=== PATIENT | female | born 1950 | race Caucasian/White ===

== ENCOUNTER 2023-04-10 17:31 | Inpatient (IN) | payer OTHER ==
[~2023-04-10] VITALS: Ht 160 cm; Wt 65.3 kg
[2023-04-10 17:36] VITALS: BP 172/85
--- NOTE | 2023-04-10 18:24 | NUR ---
PT BIB ALS RUN FROM HOME C/O LEFT HIP AND LEG PAIN X3 MONTHS. DENIES TRAUMA OR INJURY.
--- NOTE | 2023-04-10 18:58 | NUR ---
PT HAS PAIN ON HER LEFT SIDE NEAR THE GROIN AREA. PT STATES THE PAIN RADITATES TO LEFT LEG. PT HAS BEEN PLACED ON MONITOR. PTS VITAL WNL. SKIN IS PINK/WARM/DRY; AAOX4 UNABLE TO AMBULATE; LUNGS CLEAR BL; HR EVEN AND REGULAR; PT DENIES ANY FEVER, CP, SOB, OR COUGH AT THIS TIME; PATIENT STATES PAIN OF 8/10 AT THIS TIME; VSS; PATIENT POSITIONED FOR COMFORT; HOB ELEVATED; BEDRAILS UP X2; BED DOWN. ER MD MADE AWARE OF PT STATUS.
[2023-04-10] MEDS ORDERED: MORPHINE SULFATE 4 MG/ML SYR IVP ONE (19:00)
[2023-04-10 19:15] LABS: BASOPHILS # (AUTO) 0.1 K/uL (0.00-0.22); BASOPHILS % (AUTO) 0.9 % (0.0-2.0); EOSINOPHILS % (AUTO) 0.1 % (0.0-4.0); HEMATOCRIT 37.8 % (36-48); HEMOGLOBIN 12.5 g/dL (12.0-16.0); LYMPHOCYTES # (AUTO) 1.3 K/uL (2.5-16.5); MEAN CORPUSCULAR HEMOGLOBIN 27 pg (27-31); MEAN CORPUSCULAR HGB CONC 33 g/dL (33-37); MONOCYTES # (AUTO) 0.5 K/uL (0.8-1.0); MONOCYTES % (AUTO) 6.1 % (1.7-9.3); NEUTROPHILS # (AUTO) 6.5 K/uL (1.8-7.7); NEUTROPHILS % (AUTO) 76.9 % (42.2-75.2); PLATELET COUNT (AUTO) 337 K/uL (140-450); RED BLOOD CELL COUNT(AUTO) 4.67 MIL/uL (4.20-5.40); RED CELL DISTRIBUTION WIDTH 14.9 % (11.6-13.7); WHITE BLOOD COUNT (AUTO) 8.4 K/uL (4.8-10.8)
[2023-04-10 19:31] LABS: ANION GAP 15.7 (8-16); ASPARTATE AMINOTRANSFERASE 24 U/L (15-37); CARBON DIOXIDE 24.5 mmol/L (21-32); CHLORIDE 102 mmol/L (98-107); CREATININE 0.9 mg/dL (0.6-1.3); GLUCOSE 158 mg/dL (74-106); POTASSIUM 4.2 mmol/L (3.5-5.1); SODIUM SERUM 138 mmol/L (136-145); TOTAL BILIRUBIN 0.8 mg/dL (0.0-1.0); UREA NITROGEN, BLOOD 9 mg/dL (7-18)
--- NOTE | 2023-04-10 19:35 | NUR ---
X-Ray at bedside.
[2023-04-10] MEDS ORDERED: MORPHINE SULFATE 4 MG/ML SYR ONE (20:01)
[2023-04-10] MEDS ORDERED: ACETAMINOPHEN 325 MG TAB PO PRN (20:15)
[2023-04-10] MEDS ORDERED: ZOLPIDEM 10 MG TAB PO PRN (20:15)
[2023-04-10] MEDS ORDERED: MAG SULF 2000 MG/WATER PREMIX 50 ML IV PRN (20:15)
[2023-04-10] MEDS ORDERED: POTASSIUM CHLORIDE 10 MEQ TABER PO PRN (20:15)
[2023-04-10] MEDS ORDERED: LORazepam 2 MG/ML VIAL IVP PRN (20:15)
[2023-04-10 21:09] LABS: APPEARANCE,URINE HAZY (CLEAR); COLOR,URINE AMBER (YELLOW)
[2023-04-10 21:10] LABS: NITRITE, URINE NEGATIVE (NEGATIVE)
[2023-04-10] MEDS ORDERED: CYCL-711 PO (21:10)
[2023-04-10] MEDS ORDERED: ATOR20TA40 PO (21:10)
[2023-04-10] MEDS ORDERED: [UNRECOGNIZED DRUG - CODE] PO (21:10)
[2023-04-10] MEDS ORDERED: AMOX-999 PO (21:10)
[2023-04-10] MEDS ORDERED: LISI-487 PO (21:10)
--- NOTE | 2023-04-10 21:10 | NUR ---
PT PENDING ADMISSION TO [facility]. MED RECONCILE AND PT BELONGINGS COMPLETED. PT AND FAMILY AWARE OF ADMISSION. DAUGHTER AT BEDSIDE
[2023-04-10 21:11] LABS: BILIRUBIN,URINE NEGATIVE (NEGATIVE); BLOOD, URINE 3+ (NEGATIVE); PH,URINE 8.5 (5.0-9.0); UGLUCOSE NEGATIVE (NEGATIVE)
[2023-04-10 21:12] LABS: LEUKOCYTE ESTERASE ,URINE 2+ (NEGATIVE)
--- NOTE | 2023-04-10 21:26 | NUR ---
REPORT GIVEN TO REYES LERMA
--- NOTE | 2023-04-10 21:35 | NUR ---
Patient will be admitted to care of DR TARIQ. Admited to [facility]. Will go to [id number]. Belongings list completed. Report to REYES LERMA.
--- NOTE | 2023-04-10 21:50 | NUR ---
PT WAS ADMITTED TO [facility] DEPARTMENT FROM ER WITH DIAGNOSIS OF HIP PAIN. PT IS AOX4, WITH DAUGHTER ON BEDSIDE, ON BEDREST, ABLE TO VERBALIZE NEEDS AND ABLE TO FOLLOW COMMANDS. PT IS ON ROOM AIR AND ON REGULAR DIET. PT HAS IV ON LEFT AC GAUGE 20, SALINE LOCK. PT SKIN IS INTACT BUT PT HAS BRUISES ON RIGHT HAND AND LEFT FOREARM. NO COMPLAIN OF PAIN AT THIS TIME. NO S/S OF DISTRESS NOTED. PT ORIENTED TO ROOM/HOSPITAL, BED BUTTONS AND CALL LIGHT. ALL SAFETY MEASURES IMPLEMENTED. BED IN LOW POSITION, BED WHEELS ON LOCK AND CALL LIGHT WITHIN REACH.
[2023-04-11] VITALS: BP 153/90
--- NOTE | 2023-04-11 | NUR ---
PT WAS GIVEN WARM WATER PER PT REQUEST. NO COMPLAIN OF PAIN. NO S/S OF DISTRESS NOTED. ALL SAFETY MEASURES IMPLEMENTED. BED IN LOW POSITION, BED WHEELS ON LOCK AND CALL LIGHT WITHIN REACH.
--- NOTE | 2023-04-11 02:00 | NUR ---
PT IS SLEEPING. CHEST RISE AND FALL SYMMETRICALLY NOTED. RESPIRATION IS EVEN AND UNLABORED. ALL SAFETY MEASURES IMPLEMENTED. BED IN LOW POSITION. BED WHEELS ON LOCK AND CALL LIGHT WITHIN REACH.
[2023-04-11] MEDS: ONDANSETRON 4 MG/2 ML VIAL IVP PRN ×2 (02:16→21:27)
[2023-04-11] MEDS: MORPHINE SULFATE 2 MG/ML SYR IVP PRN ×3 (02:16→21:28)
--- NOTE | 2023-04-11 02:16 | NUR ---
PRN PAIN MEDICATION WAS GIVEN TO PT DUE TO LEFT HIP PAIN WITH PAIN SCALE OF 8/10. ALL SAFETY MEASURES IMPLEMENTED. BED IN LOW POSITION. BED WHEELS ON LOCK AND CALL LIGHT WITHIN REACH.
--- NOTE | 2023-04-11 04:19 | NUR ---
CHECKED THE PT, STILL SLEEPING. CHEST RISE AND FALL SYMMETRICALLY NOTED. RESPIRATION IS EVEN AND UNLABORED. ALL SAFETY MEASURES IMPLEMENTED. BED IN LOW POSITION. BED WHEELS ON LOCK AND CALL LIGHT WITHIN REACH.
[2023-04-11 05:38] LABS: BASOPHILS # (AUTO) 0.1 K/uL (0.00-0.22); BASOPHILS % (AUTO) 0.6 % (0.0-2.0); EOSINOPHILS # (AUTO) 0.1 K/uL (0-0.4); EOSINOPHILS % (AUTO) 0.9 % (0.0-4.0); HEMATOCRIT 39.4 % (36-48); LYMPHOCYTES # (AUTO) 2.5 K/uL (2.5-16.5); LYMPHOCYTES % (AUTO) 25.8 % (20.5-51.1); MEAN CORPUSCULAR HEMOGLOBIN 27 pg (27-31); MEAN CORPUSCULAR HGB CONC 33 g/dL (33-37); MEAN CORPUSCULAR VOLUME 81.7 fL (80-94); MONOCYTES # (AUTO) 0.7 K/uL (0.8-1.0); MONOCYTES % (AUTO) 6.7 % (1.7-9.3); NEUTROPHILS # (AUTO) 6.5 K/uL (1.8-7.7); PLATELET COUNT (AUTO) 371 K/uL (140-450); RED BLOOD CELL COUNT(AUTO) 4.83 MIL/uL (4.20-5.40); WHITE BLOOD COUNT (AUTO) 9.8 K/uL (4.8-10.8)
[2023-04-11 06:12] LABS: ANION GAP 14.9 (8-16); CARBON DIOXIDE 26.6 mmol/L (21-32); CHLORIDE 102 mmol/L (98-107); CREATININE 0.8 mg/dL (0.6-1.3); GLUCOSE 160 mg/dL (74-106); POTASSIUM 4.5 mmol/L (3.5-5.1); SODIUM SERUM 139 mmol/L (136-145); UREA NITROGEN, BLOOD 8 mg/dL (7-18)
[2023-04-11] MEDS: INSULIN LISPRO SLIDING SCALE 100 UNITS/ML VIAL SUBQ PRN ×4 (06:35→20:14)
[2023-04-11] MEDS: BLOOD GLUCOSE MONITORING 1 DEV DEV FS SCH ×4 (06:35→20:11)
--- NOTE | 2023-04-11 06:35 | NUR ---
PT BLOOD GLUCOSE IS 163. HUMALOG INSULIN 2 UNITS WAS GIVEN TO PT.
--- NOTE | 2023-04-11 07:28 | NUR ---
PT IS STABLE. ENDORSED PT TO MORNING SHIFT NURSE FOR CONTINUITY OF CARE.
[2023-04-11 08:00] VITALS: BP 164/87
--- NOTE | 2023-04-11 08:00 | NUR ---
Patient's Plan of Care was discussed and reviewed with ARRANGING FUNERAL DIRECTOR: CLAUDINE NASH
[2023-04-11] MEDS: ATORVASTATIN 20 MG TAB PO SCH (09:42)
[2023-04-11] MEDS: lisinopriL 20 MG TAB PO SCH (09:42)
[2023-04-11 16:00] VITALS: BP 136/80
--- NOTE | 2023-04-11 19:25 | NUR ---
ENDORSED PT TO STITCH WHEELER NURSE FOR CONTINUITY OF CARE. PT IS STABLE.
--- NOTE | 2023-04-11 19:26 | NUR ---
RECEIVED PT FROM MORNING SHIFT NURSE. PT IS AOX4, ON BEDREST WITH DAUGHTER ON BEDSIDE, ABLE TO VERBALIZE NEEDS AND ABLE TO FOLLOW COMMANDS. PT IS ON ROOM AIR AND ON REGULAR DIET. PT HAS IV ON LEFT AC GAUGE 20, SALINE LOCK. PT SKIN IS INTACT. NO COMPLAIN OF PAIN AT THIS TIME. NO S/S OF RESPIRATORY DISTRESS NOTED. ALL SAFETY MEASURES IMPLEMENTED. BED IN LOW POSITION. BED WHEELS ON LOCK AND CALL LIGHT WITHIN REACH
--- NOTE | 2023-04-11 20:14 | NUR ---
PT BLOOD GLUCOSE IS 170. HUMALOG INSULIN 2 UNITS WAS GIVEN TO PT PER MD ORDER.
--- NOTE | 2023-04-11 21:28 | NUR ---
PT WAS GIVEN PRN PAIN MEDICATION AND ZOFRAN DUE TO PAIN ON LEFT HIP WITH PAIN SCALE OF 8/10. ALL SAFETY MEASURES IMPLEMENTED. BED IN LOW POSITION. BED WHEELS ON LOCK AND CALL LIGHT WITHIN REACH
[2023-04-12] VITALS: BP 135/91
--- NOTE | 2023-04-12 | NUR ---
PT IS ON SLEEP. CHEST RISE AND FALL SYMMETRICALLY NOTED. RESPIRATION IS EVEN AND UNLABORED. ALL SAFETY MEASURES IMPLEMENTED. BED IN LOW POSITION. BED WHEELS ON LOCK AND CALL LIGHT WITHIN REACH
--- NOTE | 2023-04-12 04:00 | NUR ---
HELPED THE PT TO DO HER MORNING CARE. NO COMPLAIN OF PAIN AT THIS TIME. NO S/S OF RESPIRATORY DISTRESS NOTED. ALL SAFETY MEASURES IMPLEMENTED. BED IN LOW POSITION. BED WHEELS ON LOCK AND CALL LIGHT WITHIN REACH
[2023-04-12 05:04] LABS: BASOPHILS # (AUTO) 0.1 K/uL (0.00-0.22); BASOPHILS % (AUTO) 0.5 % (0.0-2.0); EOSINOPHILS # (AUTO) 0.2 K/uL (0-0.4); EOSINOPHILS % (AUTO) 1.5 % (0.0-4.0); HEMATOCRIT 38.2 % (36-48); HEMOGLOBIN 12.6 g/dL (12.0-16.0); LYMPHOCYTES # (AUTO) 2.3 K/uL (2.5-16.5); LYMPHOCYTES % (AUTO) 22.2 % (20.5-51.1); MEAN CORPUSCULAR HEMOGLOBIN 27 pg (27-31); MEAN CORPUSCULAR HGB CONC 33 g/dL (33-37); MONOCYTES # (AUTO) 0.7 K/uL (0.8-1.0); MONOCYTES % (AUTO) 7.2 % (1.7-9.3); NEUTROPHILS # (AUTO) 7.1 K/uL (1.8-7.7); NEUTROPHILS % (AUTO) 68.6 % (42.2-75.2); PLATELET COUNT (AUTO) 362 K/uL (140-450); RED BLOOD CELL COUNT(AUTO) 4.71 MIL/uL (4.20-5.40); RED CELL DISTRIBUTION WIDTH 15.4 % (11.6-13.7); WHITE BLOOD COUNT (AUTO) 10.3 K/uL (4.8-10.8)
[2023-04-12 05:24] LABS: ANION GAP 13.2 (8-16); CARBON DIOXIDE 25.7 mmol/L (21-32); CHLORIDE 102 mmol/L (98-107); CREATININE 0.8 mg/dL (0.6-1.3); GLUCOSE 166 mg/dL (74-106); POTASSIUM 3.9 mmol/L (3.5-5.1); SODIUM SERUM 137 mmol/L (136-145); UREA NITROGEN, BLOOD 11 mg/dL (7-18)
[2023-04-12] MEDS: BLOOD GLUCOSE MONITORING 1 DEV DEV FS SCH ×4 (06:36→21:53)
[2023-04-12] MEDS: INSULIN LISPRO SLIDING SCALE 100 UNITS/ML VIAL SUBQ PRN ×4 (06:37→21:56)
--- NOTE | 2023-04-12 06:37 | NUR ---
PT BLOOD GLUCOSE IS 154. HUMALOG INSULIN 2 UNITS WAS GIVEN TO PT.
--- NOTE | 2023-04-12 07:21 | NUR ---
PT IS STABLE. ENDORSED PT TO MORNING SHIFT NURSE FOR CONTINUITY OF CARE.
--- NOTE | 2023-04-12 07:22 | NUR ---
RECEIVED PT FROM FILLING MACHINE SET UP MECHANIC NURSE FOR CONTINUITY OF CARE. PT IS AWAKE, AOX4. ABLE TO VERBALIZE NEEDS. IV ON LAC 20G, SL. RESPIRATIONS EVEN AND UNLABORED ON RA. CALL LIGHT WITHIN REACH. ALL SAFETY PRECAUTIONS IN PLACE.
[2023-04-12 08:00] VITALS: BP 126/67
--- NOTE | 2023-04-12 08:00 | NUR ---
Patient's Plan of Care was discussed and reviewed with OIL SPRAYER: CLAUDINE NASH
[2023-04-12] MEDS: ATORVASTATIN 20 MG TAB PO SCH (08:34)
[2023-04-12] MEDS: lisinopriL 20 MG TAB PO SCH (08:35)
--- NOTE | 2023-04-12 08:52 | NUR ---
PATIENT HAS BEEN SCREENED AND CATEGORIZED LOW NUTRITION RISK. PATIENT WILL BE SEEN WITHIN 7 DAYS OF ADMISSION. 04/10/23-04/17/[address]
[2023-04-12] MEDS: MORPHINE SULFATE 2 MG/ML SYR IVP PRN ×2 (09:51→18:33)
[2023-04-12 16:00] VITALS: BP 115/67
--- NOTE | 2023-04-12 18:50 | NUR ---
REASSESSMENT OF PAIN. PT IS AWAKE AND DENIES OF PAIN, PAIN IS 0/10.
--- NOTE | 2023-04-12 19:30 | NUR ---
ENDORSED PT TO GM MOBILE NURSE FOR CONTINUITY OF CARE. PT IS STABLE.
--- NOTE | 2023-04-12 19:30 | NUR ---
REVISION OF PREVIOUS NOTES ON REASSESSMENT OF PAIN. THE REASSESSMENT TIME OF PAIN ADMINISTRATION IS 1929, NOT 1849. TYPING ERROR.
[2023-04-12 20:00] VITALS: BP 118/70
--- NOTE | 2023-04-12 20:00 | NUR ---
PT CONSUMED 50% OF DINNER.
--- NOTE | 2023-04-12 21:56 | NUR ---
BLOOD SUGAR CHECK = 200 = 2 UNITS HUMALOG INSULIN ADMINISTERED. PT IS ON STABLE CONDITION.
[2023-04-13 05:56] LABS: BASOPHILS # (AUTO) 0.1 K/uL (0.00-0.22); BASOPHILS % (AUTO) 0.5 % (0.0-2.0); EOSINOPHILS # (AUTO) 0.2 K/uL (0-0.4); EOSINOPHILS % (AUTO) 1.7 % (0.0-4.0); HEMATOCRIT 37.5 % (36-48); HEMOGLOBIN 12.4 g/dL (12.0-16.0); LYMPHOCYTES # (AUTO) 3.2 K/uL (2.5-16.5); LYMPHOCYTES % (AUTO) 27.5 % (20.5-51.1); MEAN CORPUSCULAR HEMOGLOBIN 27 pg (27-31); MEAN CORPUSCULAR HGB CONC 33 g/dL (33-37); MEAN CORPUSCULAR VOLUME 81.9 fL (80-94); MONOCYTES % (AUTO) 8.2 % (1.7-9.3); NEUTROPHILS # (AUTO) 7.3 K/uL (1.8-7.7); NEUTROPHILS % (AUTO) 62.1 % (42.2-75.2); PLATELET COUNT (AUTO) 307 K/uL (140-450); RED BLOOD CELL COUNT(AUTO) 4.58 MIL/uL (4.20-5.40); RED CELL DISTRIBUTION WIDTH 15.7 % (11.6-13.7); WHITE BLOOD COUNT (AUTO) 11.7 K/uL (4.8-10.8)
[2023-04-13 05:57] LABS: ANION GAP 11.7 (8-16); CARBON DIOXIDE 27.6 mmol/L (21-32); CHLORIDE 102 mmol/L (98-107); POTASSIUM 4.3 mmol/L (3.5-5.1); SODIUM SERUM 137 mmol/L (136-145)
[2023-04-13 06:06] LABS: CREATININE 0.9 mg/dL (0.6-1.3); GLUCOSE 171 mg/dL (74-106); UREA NITROGEN, BLOOD 11 mg/dL (7-18)
[2023-04-13] MEDS: BLOOD GLUCOSE MONITORING 1 DEV DEV FS SCH ×4 (06:59→20:48)
[2023-04-13] MEDS: INSULIN LISPRO SLIDING SCALE 100 UNITS/ML VIAL SUBQ PRN ×3 (07:02→20:51)
--- NOTE | 2023-04-13 07:02 | NUR ---
BLOOD SUGAR CHECK = 161 = 2 UNITS HUMALOG INSULIN ADMINISTERED. PT IS STABLE.
--- NOTE | 2023-04-13 07:30 | NUR ---
PT IS ON STABLE CONDITION, ENDORSED TO DAY SHIFT NURSE FOR CONTINUITY OF CARE. SAFETY MEASURES ARE IN PLACE.
[2023-04-13 08:00] VITALS: BP 124/71
[2023-04-13] MEDS ORDERED: NITROFURANTOIN 100 MG CAP PO SCH (08:00)
--- NOTE | 2023-04-13 09:00 | NUR ---
RECEIVED PATIENT IN BED C/O LEFT HIP PAIN 06/04. MORPHINE 2 MG IVP GIVEN ORDERED. DAUGHTER VISITED AND UPDATED THE PLAN OF CARE FOR TODAY. ANSWERED ALL QESTION , VERBALLY UNDERSTAND.
[2023-04-13] MEDS: ATORVASTATIN 20 MG TAB PO SCH (09:05)
[2023-04-13] MEDS: lisinopriL 20 MG TAB PO SCH (09:05)
[2023-04-13] MEDS: MORPHINE SULFATE 2 MG/ML SYR IVP PRN ×2 (09:06→15:52)
[2023-04-13] MEDS: AMOXIL/CLAVULANATE 875/125 MG 1 TAB PO SCH ×2 (12:05→20:53)
--- NOTE | 2023-04-13 12:45 | NUR ---
P.T. NOTES P.T. EVAL COMPLETED; REFER TO EVAL FOR DETAILS.
--- NOTE | 2023-04-13 13:50 | NUR ---
DC [age] YRS OLD FEMALE PATIENT WAS ADMITTED FROM HOME WITH A DX OF HIP PAIN. PATIENT HAS A HX OF HTN. HIP XRA NO ACUTE FRACTURE OR DISLOCATION. NORMAL CHEST. US VENOUS NO DVT. CT ABD SHOWED NONOBSTRUCTING 3MM RIGHT RENAL CALCULUS. RAPID COVID TEST NEGATIVE. ADMINISTERED IVF, IV ABX AMOXICILLIN AND CONTINUED HOME MEDS. PT EVALUATION ORDERED. DC PLAN TO GO HOME WHEN STABLE. CM TO FOLLOW Addendum: 04/14/23 at 3141 by JUANCARLOS SPARKS CM RECEIVED ORDER FOR PATIENT TO HAVE HOME HEALTH FOR PT SET UP AND TO ORDER A FRONT WHEEL WALKER. FAXED TO [place] [facility] AND [facility].WILL FOLLOW UP WITH UPDATES. Addendum: 04/14/23 at 1410 by JUANCARLOS SPARKS CM PATIENT ALREADY HAS A HOME HEALTH SET UP WITH [facility] [employer] AND FAXED OVER [facility] WILL RESUME CARE UPON DISCHARGE. Addendum: 04/14/23 at 1514 by JUANCARLOS SPARKS [facility] CALLED AND SAID THEY ARE PROCESSING FWW THEY ARE JUST VERIFYING 2ND INSURANCE TO SEE IF PATIENT HAS A CO-PAY, IF THERE IS ONE THEY WILL CONTACT PATIENT AND FAMILY. ONCE CONFIRMED FWW WILL BE DELIVERED AT HOME.
[2023-04-13 16:00] VITALS: BP 122/77
[2023-04-13] MEDS: DOCUSATE SODIUM 100 MG GELCAP PO PRN (18:13)
--- NOTE | 2023-04-13 19:30 | NUR ---
RECEIVED ENDORSEMENT FROM DAY SHIFT NURSE. PT IS ON BED, AWAKE AND ALERT. ABLE TO VERBALIZED NEEDS. FAMILY AT BED SITE WHEN NURSE DID ROUNDS. IV SITE INTACT AND PATENT. SKIN INTACT. PT IS WITH [employer] AND IS WORKING WELL. PT CONTINUE WITH [facility] DIET.
[2023-04-13 20:00] VITALS: BP 124/67
--- NOTE | 2023-04-13 20:51 | NUR ---
BLOOD SUGAR CHECKED = 178 = 2 UNITS HUMALOOG INSULIN ADMINISTERED PER SLIDING SCALE.
--- NOTE | 2023-04-13 22:00 | NUR ---
PT TAKES PRUNE JUICE X 1 CUP FOR PT COMPLAINTS OF CONSTIPATION, UNABLE TO HAVE BOWEL MOVEMENT (TODAY IS THE 3RD DAY).
--- NOTE | 2023-04-14 | NUR ---
PT IS SLEEPING. NO FACIAL GRIMACING, NO SOB OR DISTRESS.
[2023-04-14 04:00] VITALS: BP 129/73
[2023-04-14 05:30] LABS: ANION GAP 12.9 (8-16); CARBON DIOXIDE 26.3 mmol/L (21-32); CHLORIDE 102 mmol/L (98-107); CREATININE 0.7 mg/dL (0.6-1.3); GLUCOSE 168 mg/dL (74-106); POTASSIUM 4.2 mmol/L (3.5-5.1); SODIUM SERUM 137 mmol/L (136-145); UREA NITROGEN, BLOOD 12 mg/dL (7-18)
[2023-04-14 05:35] LABS: BASOPHILS # (AUTO) 0.1 K/uL (0.00-0.22); BASOPHILS % (AUTO) 0.6 % (0.0-2.0); EOSINOPHILS # (AUTO) 0.2 K/uL (0-0.4); EOSINOPHILS % (AUTO) 1.8 % (0.0-4.0); HEMATOCRIT 37.3 % (36-48); HEMOGLOBIN 12.5 g/dL (12.0-16.0); LYMPHOCYTES # (AUTO) 2.9 K/uL (2.5-16.5); LYMPHOCYTES % (AUTO) 28.7 % (20.5-51.1); MEAN CORPUSCULAR HEMOGLOBIN 27 pg (27-31); MEAN CORPUSCULAR HGB CONC 33 g/dL (33-37); MEAN CORPUSCULAR VOLUME 81.9 fL (80-94); MONOCYTES # (AUTO) 0.9 K/uL (0.8-1.0); MONOCYTES % (AUTO) 8.6 % (1.7-9.3); NEUTROPHILS % (AUTO) 60.3 % (42.2-75.2); PLATELET COUNT (AUTO) 300 K/uL (140-450); RED BLOOD CELL COUNT(AUTO) 4.56 MIL/uL (4.20-5.40); RED CELL DISTRIBUTION WIDTH 15.1 % (11.6-13.7)
[2023-04-14] MEDS: MORPHINE SULFATE 2 MG/ML SYR IVP PRN ×3 (06:22→19:37)
--- NOTE | 2023-04-14 06:22 | NUR ---
PT COMPLAINTS OF LEFT HIP PAIN 04/04, PAIN MEDICATION MORPHINE 2 MG ADMINISTERED VIA IVP.
[2023-04-14] MEDS: BLOOD GLUCOSE MONITORING 1 DEV DEV FS SCH ×4 (06:32→20:07)
--- NOTE | 2023-04-14 06:32 | NUR ---
BLOOD SUGAR CHECKED = 145, NO SLIDING SCALE COVERAGE, NO INSULIN NEEDED.
--- NOTE | 2023-04-14 06:40 | NUR ---
PT ASLEEP. NO FACIAL GRIMACING
--- NOTE | 2023-04-14 07:15 | NUR ---
PT IS ON STABLE CONDITION, SAFETY MEASURES ARE IN PLACE, ENDORSE TO DAY SHIFT NURSE FOR CONTINUITY OF CARE.
--- NOTE | 2023-04-14 07:16 | NUR ---
RECEIVED PT FROM INTERNATIONAL GUEST COORDINATOR NURSE FOR CONTINUITY OF CARE. PT IN BED SLEEPING. AROUSABLE TO VOICE. AAOX4, RESPIRATIONS EVEN AND UNLABORED ON RA. IV ON LAC 20G, SL. PUREWICK IN PLACE, SUCTION ON. SKIN WARM AND DRY. CALL LIGHT WITHIN REACH, ALL SAFETY PRECAUTIONS IN PLACE.
--- NOTE | 2023-04-14 08:00 | NUR ---
Patient's Plan of Care was discussed and reviewed with FRONT DESK SUPERVISOR: Trina
[2023-04-14] MEDS: lisinopriL 20 MG TAB PO SCH (09:12)
[2023-04-14] MEDS: ATORVASTATIN 20 MG TAB PO SCH (09:13)
[2023-04-14] MEDS: AMOXIL/CLAVULANATE 875/125 MG 1 TAB PO SCH ×2 (09:13→20:06)
--- NOTE | 2023-04-14 09:13 | NUR ---
ALL SCHEDULED MORNING MEDS GIVEN. PT TOLERATING WELL.
[2023-04-14] MEDS ORDERED: HYDR-5080 PO (11:06)
[2023-04-14] MEDS: INSULIN LISPRO SLIDING SCALE 100 UNITS/ML VIAL SUBQ PRN ×3 (12:05→20:07)
[2023-04-14 16:00] VITALS: BP 113/65
--- NOTE | 2023-04-14 19:24 | NUR ---
ENDORSE PT TO MEDICINAL CHEMIST NURSE FOR CONTINUITY OF CARE. PT IS STABLE.
--- NOTE | 2023-04-14 19:25 | NUR ---
RECEIVED PT IN BED AWAKE, ALERT AND ORIENTED X 4, SON AT THE BEDSIDE.DENIES PAIN AT THIS TIME. NO RESPIRATORY DISTRESS. SKIN WARM AND DRY TO TOUCH. SAFETY PRECAUTIONS IN PLACE, CALL LIGHT IN REACH, ENCOURAGED TO CALL IF ASSISTANCE IS NEEDED, PT VERBALLY ACKNOWLEDGED.
[2023-04-14 19:45] VITALS: BP 127/69
--- NOTE | 2023-04-15 00:11 | NUR ---
PT IS ASLEEP. NO S/SX OF PAIN NOR DISCOMFORT. CALL LIGHT WITHIN REACH.
[2023-04-15 04:00] VITALS: BP 118/72
[2023-04-15 05:44] LABS: BASOPHILS # (AUTO) 0.1 K/uL (0.00-0.22); BASOPHILS % (AUTO) 0.6 % (0.0-2.0); EOSINOPHILS # (AUTO) 0.3 K/uL (0-0.4); EOSINOPHILS % (AUTO) 2.5 % (0.0-4.0); HEMATOCRIT 39.4 % (36-48); HEMOGLOBIN 12.9 g/dL (12.0-16.0); LYMPHOCYTES # (AUTO) 3.1 K/uL (2.5-16.5); LYMPHOCYTES % (AUTO) 29.4 % (20.5-51.1); MEAN CORPUSCULAR HEMOGLOBIN 27 pg (27-31); MEAN CORPUSCULAR HGB CONC 33 g/dL (33-37); MEAN CORPUSCULAR VOLUME 82.9 fL (80-94); MONOCYTES % (AUTO) 9.4 % (1.7-9.3); NEUTROPHILS # (AUTO) 6.2 K/uL (1.8-7.7); NEUTROPHILS % (AUTO) 58.1 % (42.2-75.2); PLATELET COUNT (AUTO) 300 K/uL (140-450); RED BLOOD CELL COUNT(AUTO) 4.76 MIL/uL (4.20-5.40); WHITE BLOOD COUNT (AUTO) 10.6 K/uL (4.8-10.8)
[2023-04-15 05:58] LABS: ANION GAP 12.2 (8-16); CARBON DIOXIDE 28.9 mmol/L (21-32); CHLORIDE 101 mmol/L (98-107); CREATININE 0.8 mg/dL (0.6-1.3); GLUCOSE 161 mg/dL (74-106); POTASSIUM 5.1 mmol/L (3.5-5.1); SODIUM SERUM 137 mmol/L (136-145); UREA NITROGEN, BLOOD 19 mg/dL (7-18)
--- NOTE | 2023-04-15 06:18 | NUR ---
PATIENT IS ASLEEP, EASILY AROUSABLE BY VERBAL STIMULI. REFUSED AM CARE, PER PT: " I AM CLEAN." NO RESPIRATORY DISTRESS. ALL NEEDS ATTENDED TO. SAFETY PRECAUTIONS MAINTAINED DURING THE SHIFT, CALL LIGHT REMAINS WITHIN REACH.
[2023-04-15] MEDS: BLOOD GLUCOSE MONITORING 1 DEV DEV FS SCH ×2 (06:30→12:21)
[2023-04-15] MEDS: INSULIN LISPRO SLIDING SCALE 100 UNITS/ML VIAL SUBQ PRN (06:31)
--- NOTE | 2023-04-15 07:20 | NUR ---
RECEIVED REPORT FROM PLANT MAINTENANCE SUPERVISOR NURSE. PATIENT LYING DOWN IN BED, NO DISTRESS NOTED. AAOX4, SKIN INTACT. ON ROOM AIR. IV SITE INTACT, PATENT, AND ON SALINE LOCK. REVIEWED PLAN OF CARE WITH PATIENT. VERBALIZED UNDERSTANDING. SAFETY MEASURES IN PLACE, CALL LIGHT WITHIN REACH. WILL CONTINUE TO MONITOR.
[2023-04-15 08:00] VITALS: BP 122/73
[2023-04-15] MEDS: ATORVASTATIN 20 MG TAB PO SCH (08:41)
[2023-04-15] MEDS: AMOXIL/CLAVULANATE 875/125 MG 1 TAB PO SCH (08:41)
[2023-04-15] MEDS: MORPHINE SULFATE 2 MG/ML SYR IVP PRN (08:41)
[2023-04-15] MEDS: lisinopriL 20 MG TAB PO SCH (08:42)
--- NOTE | 2023-04-15 08:42 | NUR ---
SCHEDULED MEDICATIONS DUE GIVEN. COMPLAINS OF RIGHT HIP PAIN, MORPHINE PRN GIVEN AT THIS TIME. WILL CONTINUE TO MONITOR.
[2023-04-15] MEDS: DOCUSATE SODIUM 100 MG GELCAP PO PRN (09:15)
--- NOTE | 2023-04-15 11:53 | NUR ---
04/15/23 RD INITIAL ASSESSMENT COMPLETED PLEASE REFER TO NUTRITION ASSESSMENT UNDER CARE ACTIVITY FOR ESTIMATED NUTRITIONAL NEEDS. 1. CONTINUE CCHO DIET TOLERATED AND ADD MECHANICAL SOFT TO DIET FOR BETTER PO INTAKE. 2. RD TO FOLLOW-UP 7 DAYS, LOW RISK AILYN CERNA, RD
--- NOTE | 2023-04-15 12:36 | NUR ---
Certified Ophthalmic Surgical Assistant EDUCATION INTERN met with Rn, Anshul [phone] who stated pt. wants to know what is going to happen with her pain. EDUCATION INTERN introduced self to pt. who stated her son was not at hospital, was at work as is her daughter. EDUCATION INTERN stated the DrJimena is going to be discharging her. She will get another visit from the PT today. Pt. stated she resides at home by self and both children listed reside near her. EDUCATION INTERN will call son.
[2023-04-15] MEDS ORDERED: HYDROcodone/APAP 7.5/325 MG 1 TAB PO PRN (12:50)
--- NOTE | 2023-04-15 13:35 | NUR ---
PT ON UNIT WORKING WITH PATIENT. WILL CONTINUE TO MONITOR.
--- NOTE | 2023-04-15 13:58 | NUR ---
PATIENT WALKED WITH PT 55 FT, MORE THAN YESTERDAY. HIP PAIN FEELS A LOT BETTER TODAY PER PATIENT. PATIENT IS READY TO GO HOME WITH HH PT. CALLED SON AND LEFT MSG. PER PATIENT, SON IS ON THE WAY TO TAKE PATIENT HOME. WILL CONTINUE TO MONITOR.
[2023-04-15 16:00] VITALS: BP 127/66
--- NOTE | 2023-04-15 17:22 | NUR ---
DISCHARGE INSTRUCTIONS PROVIDED TO PATIENT/SON. ANSWERED ALL OF PATIENT'S QUESTIONS REGARDING DISCHARGE. IV SITE REMOVED WITH MINIMAL BLOOD AND LUMEN COMPLETELY INTACT. ID BANDS REMOVED. ESCORTED PATIENT DOWN TO LOBBY VIA WHEELCHAIR. PATIENT DISCHARGED AT THIS TIME IN STABLE CONDITION.
[2023-04-15] MEDS ORDERED: ACET-9535 PO (19:36)
== END 2023-04-15 17:30 | DRG 872 ==
LOC: MED 17:31 → MTU 20:57
PROVIDERS: ADMIT Family Medicine; ATTEND Family Medicine
DX: A41.9 Sepsis, unspecified organism (principal); N39.0 Urinary tract infection, site not specified; E44.0 Moderate protein-calorie malnutrition; Z20.822 Contact with and (suspected) exposure to COVID-19; E11.9 Type 2 diabetes mellitus without complications; I10 Essential (primary) hypertension; M16.12 Unilateral primary osteoarthritis, left hip; Z90.49 Acquired absence of other specified parts of digestive tract; Z90.710 Acquired absence of both cervix and uterus; Z68.25 Body mass index [BMI] 25.0-25.9, adult
CPT/HCPCS: 36415; 71045; 73502; 80048; 80053; 81001; 82948; 83735; 83880; 84484; 85025; 87081; 87086; 93005; 93971; 96374; 97110; 97112; 97116; 97530; 99285; J0696; J1815; J2270; J2405; J7060; Q0092